=== PATIENT | male | born 1930 | race Caucasian/White ===

== ENCOUNTER 2017-02-15 12:06 | Outpatient (CLI) | payer MEDICARE, OTHER | END 2017-02-15 12:07 | disposition short-term general hospital (02) | LOC: EMS 12:06 | PROVIDERS: ATTEND Surgery | DX: S01.81XA Laceration without foreign body of other part of head, initial encounter (principal); W01.198A Fall on same level from slipping, tripping and stumbling with subsequent striking against other object, initial encounter; Y93.K1 Activity, walking an animal; Y92.481 Parking lot as the place of occurrence of the external cause; Z79.01 Long term (current) use of anticoagulants | CPT/HCPCS: A0425; A0429 ==

== ENCOUNTER 2017-02-26 20:23 | Observation (INO) | payer MEDICARE, OTHER ==
[2017-02-26 20:57] LABS: BASOPHILS # (AUTO) 0.1 10^3/uL (0.0-0.1); BASOPHILS % (AUTO) 0.8 %; EOSINOPHILS # (AUTO) 0.2 10^3/uL (0.0-0.7); EOSINOPHILS % (AUTO) 2.5 %; HCT - HEMATOCRIT 37.1 % (42.0-52.0); HGB - HEMOGLOBIN 13.1 g/dL (14.0-18.0); LYMPHOCYTES # (AUTO) 2.6 10^3/uL (1.5-3.5); LYMPHOCYTES % (AUTO) 36.7 %; MEAN CORPUSCULAR HEMOGLOBIN 35.3 pg (27.0-31.0); MEAN CORPUSCULAR HGB CONC 35.3 g/dL (32.0-36.0); MEAN PLATELET VOLUME 7.6 fL (7.4-11.4); MONOCYTES # (AUTO) 0.5 10^3/uL (0.0-1.0); MONOCYTES % (AUTO) 6.8 %; NEUTROPHILS # (AUTO) 3.7 10^3/uL (1.5-6.6); NEUTROPHILS % (AUTO) 53.2 %; RED BLOOD COUNT 3.71 10^6/uL (4.70-6.10); RED CELL DISTRIBUTION WIDTH 14.3 % (12.0-15.0)
[2017-02-26 21:05] LABS: INR 1.1 (0.8-1.2); PT - PROTHROMBIN TIME 12.3 secs (9.9-12.6)
[2017-02-26 21:06] LABS: ALBUMIN/GLOBULIN RATIO 1.4 (1.0-2.2); BILIRUBIN,TOTAL 0.7 mg/dL (0.2-1.0); CALCIUM 9.3 mg/dL (8.5-10.3); CREATININE 1.4 mg/dL (0.6-1.2); POTASSIUM 3.8 mmol/L (3.5-5.0); TOTAL PROTEIN 7.1 g/dL (6.7-8.2)
--- NOTE | 2017-02-26 21:28 | CT Preliminary Report ---
Exam: CT Head W/O IMPRESSION: 1. Thin, subacute to chronic right convexity subdural collection. 2. Otherwise no acute intracranial abnormality. [facility] SITE ID: [id number]
--- NOTE | 2017-02-26 21:31 | CT Report ---
EXAM: CT HEAD EXAM DATE: 02/26/2017 09:03 PM. CLINICAL HISTORY: Transient aphasia or dysarthria. COMPARISON: None. TECHNIQUE: Multiaxial CT images were obtained from the foramen magnum to the vertex. IV contrast: Non e. Reformats: Coronal. In accordance with CT protocol optimization, one or more of the following dose reduction techniques w ere utilized for this exam: automated exposure control, adjustment of mA and/or KV based on patient s ize, or use of iterative reconstructive technique. FINDINGS: Parenchyma: Mild periventricular low density white matter changes. No evidence of acute infarction or hemorrhage. Extraaxial Spaces: There is a thin, iso-to hypodense 3-4 mm right convexity extra-axial collection. N o acute hemorrhage or space-occupying lesion. No associated mass effect. Ventricles: Normal in size and position. Sinuses: Imaged paranasal sinuses, orbits, and mastoids show no significant abnormality. Bones: No evidence of fracture or calvarial defect. Other: None. IMPRESSION: 1. Thin, subacute to chronic right convexity subdural collection. 2. Otherwise no acute intracranial abnormality. [facility] Referring Provider Line: [phone] SITE ID: [id number]
--- NOTE | 2017-02-26 21:31 | XRAY Preliminary Report ---
Exam: XR Chest 1 View IMPRESSION: No acute cardiopulmonary process. [facility] SITE ID: [id number]
--- NOTE | 2017-02-26 21:33 | XRAY Report ---
EXAM: CHEST RADIOGRAPHY EXAM DATE: 02/26/2017 09:08 PM. CLINICAL HISTORY: Cva. COMPARISON: None. TECHNIQUE: 1 view. FINDINGS: Lungs/Pleura: No focal opacities evident. No pleural effusion. No pneumothorax. Mediastinum: Within exam limitations, cardiomediastinal contour is normal. Other: Old right sixth, seventh and eighth rib fractures. IMPRESSION: No acute cardiopulmonary process. [facility] Referring Provider Line: [phone] SITE ID: [id number]
[2017-02-26] MEDS ORDERED: MAG HYDROX/AL HYDROX/SIMETH 30 ML UDC PO STA (23:21)
--- NOTE | 2017-02-26 23:32 | ED Physician Documentation ---
History of Present Illness - Stated complaint Stated Complaint: TIA SYMPTOMS - Chief complaint Chief Complaint: Neuro - History obtained from History obtained from: Patient, Family - Additonal information Additional information: Patient is a 86-year-old man with history of hypertension and atrial fibrillation. He is also had a stroke in 2001 and a presenting complaint at that time was aphasia. He normally takes Coumadin and aspirin. On 15 February he fell striking his forehead and sustained a laceration that required suture repair. A CT scan was done at an outside hospital demonstrated a right-sided hygroma. The physician thought it was best at that time to discontinue his Coumadin which she has been off of. The patient presents with a complaint of an episode that happened about 7:30 consistent with a possible TIA. The patient had a brief episode of garbled speech that lasted approximately 2 minutes according to his daughter.From that time to the present he has been completely normal. He has no numbness tingling or weakness. His daughter confirms that his speech is now at baseline. There is no complaints of chest pain, shortness of breath, nausea, vomiting constipation diarrhea or lower urinary symptoms. Review of systems: For pertinent positive and negatives in the review of systems please see the history of present illness, otherwise all other systems have been reviewed and are negative. Dragon disclaimer: Parts of this medical record were created using voice recognition technology. Because of the inherent limitations of this system, occasional same sounding word substitutions do occur and persist despite proofreading. Please read the document for context. Review of Systems Constitutional: denies: Fever, Chills Eyes: denies: Loss of vision Cardiac: denies: Chest pain / pressure, Palpitations Respiratory: denies: Dyspnea, Cough Musculoskeletal: denies: Neck pain, Back pain Neurologic: reports: Difficulty speaking. denies: Generalized weakness, Focal weakness, Numbness, Syncope, Seizure, Confused PD PAST MEDICAL HISTORY - Past Medical History Past Medical History: Yes Cardiovascular: Hypertension, Deep vein thrombosis, [facility] Neuro: CVA Endocrine/Autoimmune: Type 2 diabetes GI: GERD HEENT: Chronic hearing loss Psych: None - Past Surgical History Past Surgical History: Yes Ortho: Rotator cuff repair HEENT: Cataracts, Tonsil/Adenoidectomy - Present Medications Home Medications: Ambulatory Orders Medication Instructions Recorded Confirmed Aspirin 162 mg PO DAILY 07/25/13 01/04/14 Simvastatin 20 mg PO HS 07/25/13 01/04/14 Warfarin [Coumadin] 5 mg PO 1400 07/25/13 01/04/14 Warfarin [Coumadin] 7.5 mg PO 1400 07/25/13 01/04/14 raNITIdine [Zantac] 150 mg PO BID 07/25/13 01/04/14 - Allergies Allergies/Adverse Reactions: Allergies Allergy/AdvReac Type Severity Reaction Status Date / Time morphine AdvReac Severe Emesis Verified 01/04/14 01:48 - Social History Does the pt smoke?: No Smoking Status: Never smoker Does the pt drink ETOH?: Yes Does the pt have substance abuse?: No - Immunizations Immunizations are current?: Yes PD ED PE NORMAL - Vitals Vital signs reviewed: Yes - General General: Alert and oriented X 3, No acute distress, Well developed/nourished - HEENT HEENT: Atraumatic, PERRL, EOMI - Cardiac Cardiac: Other (Irregularly irregular rhythm-normal rate) - Respiratory Respiratory: No respiratory distress, Clear bilaterally, Other - Abdomen Abdomen: Normal bowel sounds, Soft, Non tender, Non distended - Derm Derm: Normal color, Warm and dry, No rash, Other - Extremities Extremities: No deformity, No tenderness to palpate, Normal ROM s pain - Neuro Neuro: Alert and oriented X 3, 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, No motor deficit, No sensory deficit Results - Vitals Vitals: Vital Signs - 24 hr 02/26/17 02/26/17 20:37 21:49 Temperature 36.2 C L Heart Rate 82 81 Respiratory 19 14 Rate Blood Pressure 159/86 H 163/79 H O2 Saturation 100 99 Oxygen O2 Source Room air - Labs Labs: Laboratory Tests 02/26/17 02/26/17 02/26/17 20:44 20:44 20:44 WBC 7.0 RBC 3.71 L Hgb 13.1 L Hct 37.1 L MCV 100.0 H MCH 35.3 H MCHC 35.3 RDW 14.3 Plt Count 179 MPV 7.6 Neut # 3.7 Lymph # 2.6 Hinds # 0.5 Eos # 0.2 Baso # 0.1 Absolute Nucleated RBC 0.00 Nucleated RBCs 0.0 PT 12.3 INR 1.1 Sodium 132 L Potassium 3.8 Chloride 98 L Carbon Dioxide 26 Anion Gap 8.0 BUN 22 H Creatinine 1.4 H Estimated GFR (MDRD) 48 L Glucose 152 H Calcium 9.3 Total Bilirubin 0.7 AST 23 ALT 18 Alkaline Phosphatase 82 Troponin I Total Protein 7.1 Albumin 4.1 Globulin 3.0 Albumin/Globulin Ratio 1.4 Lipase 21 L 02/26/17 20:44 WBC RBC Hgb Hct MCV MCH MCHC RDW Plt Count MPV Neut # Lymph # Hinds # Eos # Baso # Absolute Nucleated RBC Nucleated RBCs PT INR Sodium Potassium Chloride Carbon Dioxide Anion Gap BUN Creatinine Estimated GFR (MDRD) Glucose Calcium Total Bilirubin AST ALT Alkaline Phosphatase Troponin I < 0.04 Total Protein Albumin Globulin Albumin/Globulin Ratio Lipase PD MEDICAL DECISION MAKING - ED course ED course: Patient is a pleasant 86-year-old man who presents with a complaint of a brief episode of aphasia or dysarthria that has resolved. It happened about 7:30 PM. This patient has a history of atrial fibrillation chronically and is normally on Coumadin. He had a pretty good fall on 15 February and at the presenting hospital he had a hygroma and there is a question about new versus old bleeding so the physician at that facility thought the safest thing would be to take the patient off the Coumadin for a short time until he could be reassessed. The patient currently is not on Coumadin and atrial fibrillation tonight and since he had brief TIA symptoms it is very likely that he had a small embolic stroke. The patient's NIH stroke scale here is 0 the patient's care was talked with stroke neurologist at [facility] the patient's CT scan shows interval possible decrease in the hygroma is now 4 mm. Given the difference in technique hard to say if there is any significant difference however is clearly not bigger. This physician's belief with the patient probably should be admitted, obtain MRI to see if he has had a embolic stroke, obtain a carotid ultrasound and then consider putting the patient back on Coumadin. The patient is clinically doing well at this time. The case was discussed with her hospitalist who is now seeing the patient. Disposition: Admission Clinical impression: 1. Transient aphasia versus dysarthria 2. Suspect TIA 3. History of chronic atrial fibrillation with brief Coumadin holiday secondary to recent head trauma and hygroma on February 15
[2017-02-26] MEDS ORDERED: MAG HYDROX/AL HYDROX/SIMETH 30 ML UDC ONE (23:34)
[2017-02-27] MEDS ORDERED: ONDANSETRON ODT 4 MG TABLET TL PRN (00:15)
[2017-02-27] MEDS ORDERED: SODIUM CHLORIDE FLUSH 0.9% 10 ML SYRINGE IVP PRN (00:15)
[2017-02-27] MEDS ORDERED: oxyCODONE 5 MG TABLET PO PRN (00:15)
[2017-02-27] MEDS ORDERED: ACETAMINOPHEN 325 MG TABLET PO PRN (00:15)
[2017-02-27] MEDS ORDERED: ONDANSETRON 4 MG/2 ML VIAL IVP PRN (00:15)
[2017-02-27] MEDS ORDERED: NON FORMULARY MED (Simvastatin [Simvastatin] 20 MG) PO SCH (00:30)
[2017-02-27] MEDS ORDERED: ATORVASTATIN 10 MG TABLET PO SCH (00:45)
[2017-02-27] MEDS: FAMOTIDINE 20 MG TABLET PO SCH ×3 (01:16→20:56)
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
[2017-02-27 05:51] LABS: CHOL/HDL RATIO 4.3 (<5.0); CHOLESTEROL 165 mg/dL; HDL CHOLESTEROL 38 mg/dL; LDL/HDL RATIO 2.8 (<3.6); TRIGLYCERIDES 93 mg/dL; VLDL CHOLESTEROL 19 mg/dL
[2017-02-27 06:04] LABS: HEMOGLOBIN A1C 0.62 g/dL
[2017-02-27] MEDS: SODIUM CHLORIDE FLUSH 0.9% 10 ML SYRINGE IVP SCH ×3 (06:07→21:21)
[2017-02-27] MEDS: PANTOPRAZOLE 40 MG TABLET PO SCH (06:07)
[2017-02-27] MEDS: POLYETHYLENE GLYCOL 3350 17 GM PACKET PO SCH (08:52)
[2017-02-27] MEDS ORDERED: ASPIRIN CHEW 81 MG TABLET PO SCH (09:00)
[2017-02-27] MEDS ORDERED: WARFARIN 5 MG TABLET PO SCH (11:00)
--- NOTE | 2017-02-27 11:59 | DISCHARGE SUMMARY ---
Discharge Summary Admit Date: 02/27/17 Code Status: Do Not Attempt Resuscitation Condition at Discharge: Good Discharge Disposition: 01 Home, Self Care - DIAGNOSES Admission Diagnoses: transient ischmic attack chronic afib type 2 diabetes with neuropathy hypertension DNR/I Discharge Diagnoses with Status of Each Condition: transient ischmic attack-- resolved chronic afib-- rate controlled chronic anticoagulation on coumadin-- need INR checked and coumadin dose adjustment accordingly type 2 diabetes with neuropathy-- stable; HgA1C 6.3 hypertension-- controlled hyyponatremia-- mild; monitor prn chronic kidney disease, stage 3-- stable DNR/I - HPI History of Present Illness: This 86 year old gentleman with history of CD, DM, HTN, HLP, afib was seen at [facility] last month due to falls. he was noted to have [address] of head. he was taken off his coumadin for his afib. He came to ED this time for inability to speak correctly and word finding problems lasted about 30 minutes. in ED, his CT of head was negative for acute stroke. - ALLERGIES Allergies/Adverse Reactions: Allergies Allergy/AdvReac Type Severity Reaction Status Date / Time morphine AdvReac Severe Emesis Verified 01/04/14 01:48 - MEDICATIONS Home Medications: Ambulatory Orders Medication Instructions Recorded Confirmed raNITIdine [Zantac] 150 mg PO BID 07/25/13 02/27/17 Ascorbic Acid 1,000 mg PO DAILY 02/27/17 02/27/17 Aspirin [Aspirin EC] 81 mg PO BID 02/27/17 02/27/17 Cholecalciferol (Vitamin D3) 800 unit PO DAILY 02/27/17 02/27/17 [Vitamin D3] - LABS Result Diagrams: 02/26/17 20:44 02/26/17 20:44
--- NOTE | 2017-02-27 12:21 | MRI Preliminary Report ---
Exam: MRI Brain W/O IMPRESSION: 1. Punctate cortical infarcts are seen bilaterally on the diffusion weighted sequence. The pattern is consistent with tiny embolic infarcts. The 2 high superior left frontal infarcts could be late acute /early subacute. The other foci are acute based on MRI signal characteristics. 2. A subacute subdural hematoma is seen on the right and has not changed since comparison head CT. 3. Small vessel ischemic change is present throughout the cerebral hemisphere white matter. [facility] SITE ID: [id number]
--- NOTE | 2017-02-27 12:23 | MRI Report ---
EXAM: MRI BRAIN WITHOUT CONTRAST EXAM DATE: 02/27/2017 10:32 AM. CLINICAL HISTORY: Tia, afib, not on coumadin. COMPARISON: CT head 02/26/2017. TECHNIQUE: Multiplanar, multisequence T1-weighted and fluid-sensitive MR sequences of the brain were performed. Sequences optimized for routine evaluation. Other: None. IV Contrast: None. FINDINGS: There are punctate areas of cortical restricted diffusion signal involving each occipital lobe. A sim ilar finding is seen involving the cortex of the inferior posterior right parietal lobe. There is a s uggestion of 2 punctate areas of faint restricted diffusion signal in the cortex of the left frontal lobe on image 176 of series 505. There is no magnetic susceptibility associated these areas of restri cted diffusion signal. As seen on the comparison study there is a thin subdural fluid collection measuring up to 9 mm in thi ckness overlying much of the right cerebral hemisphere. There is magnetic susceptibility associated w ith this finding. This is not changed in thickness. No ventriculomegaly is present. Scattered subcortical and deep white matter FLAIR hyperintensities ar e seen in the cerebral hemisphere white matter bilaterally. Expected flow voids are seen in the major intracranial vessels at the skull base. No mass is present in either orbit. No abnormal T1 shortening is present in the brain parenchyma. No cerebellar tonsillar ectopia is present IMPRESSION: 1. Punctate cortical infarcts are seen bilaterally in the diffusion weighted sequence. The pattern is consistent with tiny embolic infarcts. The 2 high superior left frontal infarcts could be late acute /early subacute. The other foci are acute based on MRI signal characteristics. 2. A subacute subdural hematoma is seen on the right and has not changed since comparison head CT. 3. Small vessel ischemic change is present throughout the cerebral hemisphere white matter. [facility] Referring Provider Line: [phone] SITE ID: [id number]
--- NOTE | 2017-02-27 13:26 | PROVIDER PROGRESS NOTE ---
Assessment/Plan - Problem List (1) Stroke Qualifiers: CVA mechanism: embolism Assessment/Plan: MRI of brain today shows " punctate cortical infarcts are seen bilaterally in the diffusion weighted sequence; the pattern is consistent with tiny embolic infarcts.The 2 high superior left frontal infarcts could be late acute/early subacute. The other foci are acute base on MRI signal characteristics A subacute subdural hematoma is seen on the right and has not changed since CT of head small vessel ischemic change watch over the night due to acute/subacute stroke echo for ? thrombus and PFO continue tele on aspirin while coumadin reaches therapeutic INR; but patient declined it due to bleeding concerns on statin no need for PT, OT an speech eval since no focal deficit noted pending carotid artery doppler result (2) Diabetes type 2, controlled Assessment/Plan: controlled; HgA1C 6.3 sliding scales insulin (3) Hypertension, essential Assessment/Plan: stable; allow permissive hypertension due to recent stroke (4) CKD (chronic kidney disease) stage 3, GFR 30-59 ml/min Assessment/Plan: at his baseline; monitor accordingly (5) Afib Assessment/Plan: rate controlled afib on coumadin now (6) Chronic anticoagulation Assessment/Plan: pharmacy dose couamdin; daily INR - Current Meds Current Meds: Current Medications Generic Name Dose Route Start Last Admin Trade Name Freq PRN Reason Stop Dose Admin Aspirin 162 mg 02/27/17 09:00 02/27/17 08:52 [facility] Josef Aspirin PO Not Given DAILY RENEE Atorvastatin Calcium 10 mg 02/27/17 00:45 02/27/17 01:16 Lipitor PO 10 mg QPM RENEE Administration Famotidine 20 mg 02/27/17 00:45 02/27/17 08:50 Pepcid PO 20 mg BID RENEE Administration Pantoprazole Sodium 40 mg 02/27/17 07:00 02/27/17 06:07 Protonix PO 40 mg QDAC RENEE Administration Polyethylene Glycol 17 gm 02/27/17 09:00 02/27/17 08:52 Miralax PO Not Given DAILY RENEE Sodium Chloride 10 ml 02/27/17 06:00 02/27/17 13:11 Normal Saline Flush 0.9% IVP 10 ml Q8HR RENEE Administration - Lab Result Lab results reviewed: Yes Fish Bone Diagrams: 02/26/17 20:44 02/26/17 20:44 - EKG Results EKG Interpreted Independently: Yes EKG Findings: afib - Diagnostic Imaging Results Diagnostic Imaging Results Comments: MRI of brain 02/27/17-- punctate cortical infarcts are seen bilaterally in the diffusion weighted sequence; the pattern is consistent with tiny embolic infarcts.The 2 high superior left frontal infarcts could be late acute/early subacute. The other foci are acute base on MRI signal characteristics A subacute subdural hematoma is seen on the right and has not changed since CT of head small vessel ischemic change CT of head 02/26/17-- thin subacute to chronic right convexity subdural collection; no acute CXR 02/26/17-- no acute - Additional Planning Condition/Complexity: Stable My Orders: My Active Orders 02/27/17 Echo Limited w/Bubble Study [ECHO] Routine Pharmacy Consult [CONS] Routine 02/28/17 14:00 Warfarin [Coumadin] 2.5 mg PO SuTuThSa@1400 03/01/17 14:00 Warfarin [Coumadin] 5 mg PO MoWeFr@1400 Plan Discussed with:: Patient, Family (called family and left a message), Case Management Time Spent: 15-30 minutes Objective Vital Signs: Vital Signs - 24 hr 02/27/17 02/27/17 02/27/17 00:35 01:00 04:47 Temperature 36.6 C 36.6 C Heart Rate 87 Heart Rate [ 83 79 Brachial] Respiratory 17 16 Rate Blood Pressure 142/69 H Blood Pressure 150/83 H 139/74 H [Right Brachial artery] O2 Saturation 100 100 99 02/27/17 02/27/17 07:47 11:27 Temperature 36.5 C 36.2 C L Heart Rate Heart Rate [ 78 64 Brachial] Respiratory 14 16 Rate Blood Pressure Blood Pressure 148/78 H 104/61 [Right Brachial artery] O2 Saturation 94 100 Oxygen O2 Source Room air I&O (Last 24 Hrs): Intake and Output Totals x24h 02/25/17 02/26/17 02/27/17 23:59 23:59 23:59 Intake Total 2060 Output Total 900 Balance 1160 - Results Results: Laboratory Results WBC 7.0 x10^3/uL (4.8-10.8) 02/26/17 20:44 RBC 3.71 10^6/uL (4.70-6.10) L 02/26/17 20:44 Hgb 13.1 g/dL (14.0-18.0) L 02/26/17 20:44 Hct 37.1 % (42.0-52.0) L 02/26/17 20:44 MCV 100.0 fL (80.0-94.0) H 02/26/17 20:44 MCH 35.3 pg (27.0-31.0) H 02/26/17 20:44 MCHC 35.3 g/dL (32.0-36.0) 02/26/17 20:44 RDW 14.3 % (12.0-15.0) 02/26/17 20:44 Plt Count 179 10^3/uL (130-450) 02/26/17 20:44 MPV 7.6 fL (7.4-11.4) 02/26/17 20:44 Neut # 3.7 10^3/uL (1.5-6.6) 02/26/17 20:44 Lymph # 2.6 10^3/uL (1.5-3.5) 02/26/17 20:44 Eddy # 0.5 10^3/uL (0.0-1.0) 02/26/17 20:44 Eos # 0.2 10^3/uL (0.0-0.7) 02/26/17 20:44 Baso # 0.1 10^3/uL (0.0-0.1) 02/26/17 20:44 Absolute Nucleated RBC 0.00 x10^3/uL 02/26/17 20:44 Nucleated RBCs 0.0 /100WBC 02/26/17 20:44 PT 12.3 secs (9.9-12.6) 02/26/17 20:44 INR 1.1 (0.8-1.2) 02/26/17 20:44 Sodium 132 mmol/L (135-145) L 02/26/17 20:44 Potassium 3.8 mmol/L (3.5-5.0) 02/26/17 20:44 Chloride 98 mmol/L (101-111) L 02/26/17 20:44 Carbon Dioxide 26 mmol/L (21-32) 02/26/17 20:44 Anion Gap 8.0 (6-13) 02/26/17 20:44 BUN 22 mg/dL (6-20) H 02/26/17 20:44 Creatinine 1.4 mg/dL (0.6-1.2) H 02/26/17 20:44 Estimated GFR (MDRD) 48 (>89) L 02/26/17 20:44 Glucose 152 mg/dL (70-100) H 02/26/17 20:44 Glycated Hemoglobin 6.3 % (4.6-6.2) H 02/27/17 05:16 Estim Average Glucose 134 (70-100) H 02/27/17 05:16 Calcium 9.3 mg/dL (8.5-10.3) 02/26/17 20:44 Total Bilirubin 0.7 mg/dL (0.2-1.0) 02/26/17 20:44 AST 23 IU/L (10-42) 02/26/17 20:44 ALT 18 IU/L (10-60) 02/26/17 20:44 Alkaline Phosphatase 82 IU/L (42-121) 02/26/17 20:44 Troponin I < 0.04 ng/mL (<0.49) 02/26/17 20:44 Total Protein 7.1 g/dL (6.7-8.2) 02/26/17 20:44 Albumin 4.1 g/dL (3.2-5.5) 02/26/17 20:44 Globulin 3.0 g/dL (2.1-4.2) 02/26/17 20:44 Albumin/Globulin Ratio 1.4 (1.0-2.2) 02/26/17 20:44 Triglycerides 93 mg/dL (-149) 02/27/17 05:16 Cholesterol 165 mg/dL (-199) 02/27/17 05:16 LDL Cholesterol, Calc 108 mg/dL (-129) 02/27/17 05:16 VLDL Cholesterol 19 mg/dL 02/27/17 05:16 HDL Cholesterol 38 mg/dL (60-) L 02/27/17 05:16 LDL/HDL Ratio 2.8 (<3.6) 02/27/17 05:16 Cholesterol/HDL Ratio 4.3 (<5.0) 02/27/17 05:16 Lipase 21 U/L (22-51) L 02/26/17 20:44
[2017-02-27] MEDS: INSULIN ASPART 300 UNIT/3 ML PEN SUBQ SCH ×2 (17:58→21:16)
[2017-02-27] MEDS ORDERED: ATORVASTATIN 40 MG TABLET PO SCH (21:00)
[2017-02-28 05:26] LABS: PT - PROTHROMBIN TIME 11.8 secs (9.9-12.6)
[2017-02-28] MEDS: PANTOPRAZOLE 40 MG TABLET PO SCH (06:36)
[2017-02-28] MEDS: SODIUM CHLORIDE FLUSH 0.9% 10 ML SYRINGE IVP SCH (06:37)
--- NOTE | 2017-02-28 07:15 | Discharge Plan ---
Discharge Plan Disposition: Home, Self Care Condition: Stable Prescriptions: Aspirin Chewable [[facility] Josef Aspirin] 81 mg PO DAILY #10 tablet Diet: Regular Activity Restrictions: Activity as Tolerated Shower Restrictions: No Driving Restrictions: No Instruction Topics: Stroke Prevent Live W Atrial Fib Additional Instructions or Follow Up instructions: May start Warfarin as home medication schedule May start Aspirin 81 mg daily for one week May have blood workup including PT/INR in one week May see PCP in one week May see neurologist in two weeks Follow-Up Care: [facility] - Cardiac, [facility] [place] [facility] - Medical No Smoking: If you smoke, Please STOP! Call for help. Follow-up with: SUZETTE ELAINE [Physician No Access] -
[2017-02-28 08:14] VITALS: BP 134/65
[2017-02-28] MEDS: FAMOTIDINE 20 MG TABLET PO SCH (08:34)
[2017-02-28] MEDS: INSULIN ASPART 300 UNIT/3 ML PEN SUBQ SCH (08:36)
[2017-02-28] MEDS: POLYETHYLENE GLYCOL 3350 17 GM PACKET PO SCH (08:45)
[2017-02-28] MEDS ORDERED: ASPIRIN CHEW 81 MG TABLET PO SCH (09:00)
--- NOTE | 2017-02-28 10:35 | Ultrasound Report ---
CAROTID DUPLEX: 02/27/2017 CLINICAL INDICATION: TIA. TECHNIQUE: Real-time sonographic vascular imaging was performed by the systems checkout mechanic through the carotid arteries utilizing both color-flow and Doppler spectral analysis. Multiple graphic art sales representative static images were saved for review. Vessel PSV cm/sec 2D Plaque Estimate % ICA/CCA PSV EDV cm/sec % Stenosis RCCA Prox 55 -- RCCA Dist 57 10 RECA 107 -- RT BULB 83 -- 1.45 14 FUAD Prox 61 -- 1.07 16 FUAD Mid 62 -- 1.08 16 FUAD Dist 67 -- 1.17 16 RVA 34 RVA flow direction: Antegrade. Vessel PSV cm/sec 2D Plaque Estimate % ICA/CCA PSV EDV cm/sec % Stenosis LCCA Prox 57 -- LCCA Dist 58 9.5 LECA 61 -- LFT BULB 53 -- 0.91 14 LICA Prox 48 -- 0.82 10 LICA Mid 59 -- 1.01 21 LICA Dist 58 -- 1.0 15 LVA 31 LVA flow direction: Antegrade. Velocity criteria are extrapolated from diameter data as defined by the Society of Radiologists in Ultrasound Consensus Conference Radiology 2003; 229; 340-346. Degree of Stenosis % ICA PSV cm/sec Plaque Estimate % ICA/CCA RSV Ratio ICA EDV cm/sec Normal < 125 None < 2.0 < 40 <50 < 125 < 50 < 2.0 < 40 50-69 125 - 130 >/= 50 2.0 - 4.0 40 - 100 >/= 70 but less than near occlusion > 230 >/= 50 > 4.0 > 100 Near occlusion High, low, or undetectable Visible lumen Variable Variable Total occlusion Undetectable No detectable lumen Not applicable Not applicable FINDINGS: RIGHT: There is mild calcified plaquing in the right carotid bifurcation, without evidence of a focal hemodynamically significant carotid stenosis. LEFT: There is moderate calcified plaquing in the left carotid bifurcation, without evidence of a focal hemodynamically significant carotid stenosis. The vertebral arteries demonstrate antegrade flow bilaterally. IMPRESSION: NO EVIDENCE OF A FOCAL HEMODYNAMICALLY SIGNIFICANT CAROTID STENOSIS. MTDD
[2017-02-28] MEDS ORDERED: WARFARIN 2.5 MG TABLET PO SCH ×2 (10:39→14:00)
--- NOTE | 2017-02-28 11:37 | DISCHARGE SUMMARY ---
Discharge Summary Admit Date: 02/27/17 Discharge Date: 02/28/17 Discharging Provider: Ring Primary Care Provider: [facility] and [facility] [place] [facility]. [facility] Code Status: Do Not Attempt Resuscitation Condition at Discharge: Stable Discharge Disposition: 01 Home, Self Care Discharge Facility Name: [facility] - DIAGNOSES Admission Diagnoses: TIA HTN Afib history of CVA history of recent trauma and hygroma Discharge Diagnoses with Status of Each Condition: CVA, resume home mediation of Warfarin, start on Aspirin for one week while initiate Warfarin, which was recommend from [place] neurologist. Check blood workup including PT/INR in one week, [facility] . I called [place] for patient to set up PCP appointment, and [facility]. HTN, stable Afib, stable, resume Warfarin now History of CVA, no residence weakness. History of hygroma, stable,closely monitor PT/INR - HPI History of Present Illness: please refer from ED provider's HPI: Patient is a 86-year-old man with history of hypertension, history of CVA, head trauma with hygroma and atrial fibrillation. He is also had a stroke in 2001 and a presenting complaint at that time was aphasia. He normally takes Coumadin and aspirin. On 15 February he fell striking his forehead and sustained a laceration that required suture repair. A CT scan was done at an outside hospital demonstrated a right-sided hygroma. The physician thought it was best at that time to discontinue his Coumadin which she has been off of. The patient presents with a complaint of an episode that happened about 7:30 consistent with a possible TIA. The patient had a brief episode of garbled speech that lasted approximately 2 minutes according to his daughter.From that time to the present he has been completely normal. He has no numbness tingling or weakness. His daughter confirms that his speech is now at baseline. There is no complaints of chest pain, shortness of breath, nausea, vomiting constipation diarrhea or lower urinary symptoms - CONSULTS | PROCEDURES Procedures: MRI of brain today shows " punctate cortical infarcts are seen bilaterally in the diffusion weighted sequence; the pattern is consistent with tiny embolic infarcts.The 2 high superior left frontal infarcts could be late acute/early subacute. The other foci are acute base on MRI signal characteristics A subacute subdural hematoma is seen on the right and has not changed since CT of head small vessel ischemic change ECHO reveals normal LV function EF 60-65% US of Carotid reveals no acute finding - HOSPITAL COURSE Hospital Course: Pt is with TIA in admission. TIA workup MRI found pt with CVA. Pt's symptoms are totally resolved. No PT/OT/SP are indicated at this point. Pt is advised to follow up PCP in one week and see neurologist in two weeks. Pt may have Aspirin 81 mg daily for one week while initially warfarin, resume home medication of Warfarin. May check blood workup in one week including PT/INR. - ALLERGIES Allergies/Adverse Reactions: Allergies Allergy/AdvReac Type Severity Reaction Status Date / Time morphine AdvReac Severe Emesis Verified 01/04/14 01:48 - MEDICATIONS Home Medications: Ambulatory Orders Medication Instructions Recorded Confirmed raNITIdine [Zantac] 150 mg PO BID 07/25/13 02/27/17 Ascorbic Acid 1,000 mg PO DAILY 02/27/17 02/27/17 Cholecalciferol (Vitamin D3) 800 unit PO DAILY 02/27/17 02/27/17 [Vitamin D3] Aspirin Chewable [St Josef 81 mg PO DAILY #10 tablet 02/28/17 Aspirin] Atorvastatin [Lipitor] 40 mg PO QPM tablet 02/28/17 Warfarin [Coumadin] 2.5 mg PO SuTuThSa@1400 tablet 02/28/17 Warfarin [Coumadin] 5 mg PO MoWeFr@1400 tablet 02/28/17 - PHYSICAL EXAM AT DISCHARGE General Appearance: positive: No acute distress, Alert. negative: Lethargic Eyes Bilateral: positive: Normal inspection, PERRL, EOMI. negative: No lid inflammation, Conjunctivae nml ENT: positive: ENT inspection nml, Pharynx nml. negative: No signs of dehydration, Purulent nasal drainage, Pharyngeal erythema Neck: positive: Nml inspection, Thyroid nml, Trachea midline. negative: Thyromegaly, Lymphadenopathy (R), Lymphadenopathy (L), Stiff neck, Swelling/ bruising, Tracheal deviation Respiratory: positive: Chest non-tender, No respiratory distress, Breath sounds nml. negative: Wheezes, Rales, Rhonchi Cardiovascular: positive: Regular rate & rhythm, No murmur, No gallop. negative : Irregularly irregular, Tachycardia, Bradycardia, Systolic murmur, Diastolic murmur Peripheral Pulses: positive: 2+ Abdomen: positive: Non-tender, Nml bowel sounds, No distention. negative: Tenderness, Guarding, Rebound Back: positive: Nml inspection. negative: CVA tenderness (R), CVA tenderness (L ) Skin: positive: Color nml, No rash, Warm, Dry. negative: Diaphoresis, Pallor, Decubitus Extremities: positive: Non-tender, Full ROM, Nml appearance, No pedal edema. negative: Pedal edema, Calf tenderness, Joint swelling, Dee's sign/cords Neurologic/Psychiatric: positive: Oriented x3, CN's nml (2-12), Motor nml, Sensation nml, Mood/affect nml. negative: Disoriented to person, Disoriented to place, Disoriented to time, Weakness, Sensory loss, Facial droop, Slurred/ abnml speech - LABS Result Diagrams: 02/26/17 20:44 02/26/17 20:44 - FOLLOW UP Follow Up: pt is advise to follow up PCP in one week and neurologist in one month, blood workup in one week including PT/INR, continue Aspirin 81 mg daily for one week, while resume Coumadin of home medication.
[2017-03-01] MEDS ORDERED: WARFARIN 5 MG TABLET PO SCH (14:00)
== END 2017-02-28 12:50 | disposition home or self-care (01) ==
LOC: ED 20:23 → OBS 02-27 00:15
PROVIDERS: ADMIT Specialist; ATTEND Nurse Practitioner Gerontology
DX: I63.40 Cerebral infarction due to embolism of unspecified cerebral artery (principal); R47.89 Other speech disturbances; R29.700 NIHSS score 0; I25.10 Atherosclerotic heart disease of native coronary artery without angina pectoris; E11.42 Type 2 diabetes mellitus with diabetic polyneuropathy; E11.22 Type 2 diabetes mellitus with diabetic chronic kidney disease; I12.9 Hypertensive chronic kidney disease with stage 1 through stage 4 chronic kidney disease, or unspecified chronic kidney disease; I48.2 Chronic atrial fibrillation; D18.1 Lymphangioma, any site; E78.5 Hyperlipidemia, unspecified; N18.3 Chronic kidney disease, stage 3 (moderate); I25.2 Old myocardial infarction; K21.9 Gastro-esophageal reflux disease without esophagitis; Z86.73 Personal history of transient ischemic attack (TIA), and cerebral infarction without residual deficits; Z86.718 Personal history of other venous thrombosis and embolism; Z66 Do not resuscitate; Z79.82 Long term (current) use of aspirin; Z91.81 History of falling; Z87.891 Personal history of nicotine dependence
CPT/HCPCS: 36415; 70450; 70551; 71010; 80053; 80061; 83036; 83690; 84484; 85025; 85610; 93005; 93306; 93880; 99284; A9270; G0378